=== PATIENT | female | born 1970 | race Caucasian/White ===

== ENCOUNTER 2016-09-14 09:42 | Emergency (ER) | payer BC, OTHER ==
--- NOTE | 2016-09-14 10:01 | Emergency Department Record ---
History of Present Illness - General Stated Complaint: NEEDLE STICK Time Seen by Provider: 09/14/16 09:56 Source: Patient Mode of Arrival: Ambulatory Limitations: No limitations - History of Present Illness Initial comments: 45 yo female presents to ED following a needle stick exposure to the left index finger following the administration of a depo-provera injection. Patient reports the injury occurred approximately 1 hours ago, patient immediately cleaned the wound following injury. Patient denies health problems at her baseline, reports that her Hepatitis B vaccination is not current. Onset/Timin -: Hour(s) Location: Left, Upper extremity Radiation: Non-Radiating Consistency: Constant Improves with: None Worsens with: None Associated Symptoms: Denies other symptoms - Ngozi Coma Scale Eye Response: (4) Open spontaneously Motor Response: (6) Obeys commands Verbal Response: (5) Oriented Ngozi Total: 15 - Related Data Home Medications Medication Instructions Recorded Confirmed Last Taken Levonorgestrel-Ethin Estradiol 1 tab PO DAILY 09/14/16 09/14/16 Unknown [Enpresse-28 Tablet] Allergies Allergy/AdvReac Type Severity Reaction Status Date / Time cefaclor [From [facility]] AdvReac ANAPHYLAXIS Verified 01/23/15 09:08 penicillin AdvReac ANAPHYLAXIS Verified 01/23/15 09:08 Review of Systems Constitutional: Denies: Chills, Fever, Malaise, Night sweats Eyes: Denies: Eye discharge, Eye pain ENT: Denies: Congestion, Ear pain, Epistaxis Respiratory: Denies: Cough, Dyspnea Cardiovascular: Denies: Chest pain, Dyspnea on exertion Endocrine: Denies: Fatigue, Heat or cold intolerance Gastrointestinal: Denies: Abdominal pain, Nausea, Vomiting Genitourinary: Denies: Dysuria, Frequency Musculoskeletal: Denies: Arthralgia, Back pain, Gout, Joint swelling Skin: Denies: Bruising, Change in color Neurological: Denies: Abnormal gait, Confusion, Headache, Seizure Psychiatric: Denies: Anxiety Hematological/Lymphatic: Denies: Anemia, Blood Clots Past Medical History - SOCIAL HISTORY Smoking Status: Former smoker - RESPIRATORY Hx Respiratory Disorders: No - CARDIOVASCULAR Hx Cardio Disorders: No - NEURO Hx Neuro Disorders: No - GI Hx GI Disorders: No - Hx Genitourinary Disorders: No - ENDOCRINE Hx Endocrine Disorders: No - MUSCULOSKELETAL Hx Musculoskeletal Disorders: No - PSYCH Hx Psych Problems: No - HEMATOLOGY/ONCOLOGY Hx Hematology/Oncology Disorders: No Physical Exam - General General Appearance: Alert, Oriented x3, Cooperative Limitations: No limitations - Head Head exam: Atraumatic, Normocephalic, Normal inspection Head exam detail: negative: Abrasion, Contusion, Quintanilla's sign, General tenderness, Hematoma, Laceration - Eye Eye exam: Normal appearance. negative: Conjunctival injection, Periorbital swelling, Periorbital tenderness, Scleral icterus - ENT Ear exam: negative: Auricular hematoma, Auricular trauma Nasal Exam: negative: Active bleeding, Discharge, Dried blood, Foreign body Mouth exam: negative: Drooling, Laceration, Muffled voice, Tongue elevation - Neck Neck exam: Normal inspection. negative: Meningismus, Tenderness - Respiratory Respiratory exam: Normal lung sounds bilaterally. negative: Rales, Respiratory distress, Rhonchi, Stridor - Cardiovascular Cardiovascular Exam: Regular rate, Normal rhythm, Normal heart sounds - GI/Abdominal GI/Abdominal exam: Soft. negative: Rebound, Rigid, Tenderness - Rectal Rectal exam: Deferred - exam: Deferred - Extremities Extremities exam: Other (small needle stick injury to the distal left index finger.). negative: Calf tenderness, Pedal edema, Tenderness - Back Back exam: Denies: CVA tenderness (R), CVA tenderness (L) - Neurological Neurological exam: Alert, Normal gait, Oriented X3 - Psychiatric Psychiatric exam: Normal affect, Normal mood - Skin Skin exam: Normal color. negative: Abrasion Type of lesion: negative: abrasion Course - Reevaluation(s) Reevaluation #1: 09/14/16 10:06 Patient was seen and examined, rapid HIV and Hepatitis screen ordered. Provided the patient with HIV prophylxis information including risks and benefits of initiating therapy, patient does not want to start prophylaxis as this time. Will attempt to reach the source patient for rapid testing as well. Will initiate Hepatitis vaccination from the ED, immuneglobulin is not currently indicated unless the source patient is positive. 09/14/16 10:11 Disposition Disposition: Discharge Clinical Impression: Needle stick injury of finger Disposition: Home, Self-Care Condition: (2) Stable Instructions: Needle Stick Injuries (ED) Additional Instructions: Return to ED if your symptoms worsen or if you have any concerns. Follow-up with employee health in 1-3 days as directed. Time of Disposition: 11:56
[2016-09-14] MEDS ORDERED: HEPATITIS B VIRUS VACCINE IM ONE (10:12)
[2016-09-15 13:09] LABS: HEP A AB IGM Nonreactive (Nonreactive); HEPATITIS B CORE ANTIBODY,IGM Nonreactive (Nonreactive); HEPATITIS B SURFACE ANTIGEN Nonreactive (Nonreactive); HEPATITIS C VIRUS ANTIBODY Nonreactive (Nonreactive)
== END 2016-09-14 11:45 | disposition home or self-care (01) ==
LOC: ER 09:42
DX: S60.411A Abrasion of left index finger, initial encounter (principal); W46.0XXA Contact with hypodermic needle, initial encounter; Y92.230 Patient room in hospital as the place of occurrence of the external cause; Y93.F9 Activity, other caregiving; Y99.0 Civilian activity done for income or pay
CPT/HCPCS: 87390; 96372; 99283

== ENCOUNTER 2016-10-17 08:52 | Emergency (ER) | payer BC, OTHER ==
--- NOTE | 2016-10-17 09:01 | Emergency Department Record ---
History of Present Illness - General Chief complaint: ENT Stated complaint: EAR PAIN Time Seen by Provider: 10/17/16 09:01 Source: Patient Mode of Arrival: Ambulatory Limitations: No limitations - History of Present Illness Initial comments: The patient is here due to swelling to her R jaw at the angle of the mandible for the last 3 hours. She denies any significant pain, fever, ST or RIDLEY. There is reported ear popping and mild congestion. MD complaint: Other Onset/Timin -: Days(s) Location: R ear Severity: Moderate Severity scale (1-10): 2 Quality: Aching Consistency: Constant Improves with: None - Related Data Home Medications Medication Instructions Recorded Confirmed Last Taken Levonorgestrel-Ethin Estradiol 1 tab PO DAILY 09/14/16 10/17/16 1 Day Ago [Enpresse-28 Tablet] Previous Rx's Medication Instructions Recorded Clindamycin HCl [Cleocin HCl] 300 mg PO QID #40 capsule 10/17/16 Allergies Allergy/AdvReac Type Severity Reaction Status Date / Time cefaclor [From Ceclor] AdvReac ANAPHYLAXIS Verified 10/17/16 09:01 penicillin AdvReac ANAPHYLAXIS Verified 10/17/16 09:01 Travel Screening - Travel/Exposure Within Last 30 Days Have you traveled within the last 30 days?: No - Travel/Exposure Within Last Year Have you traveled outside the [place] in the last year?: No - Additonal Travel Details Have you been exposed to anyone with a communicable illness?: No - Travel Symptoms Symptom Screening: None Review of Systems Constitutional: Denies: Chills, Fever Eyes: Denies: Eye discharge ENT: Reports: Congestion Respiratory: Denies: Cough, Dyspnea Past Medical History - SOCIAL HISTORY Smoking Status: Former smoker Alcohol Use: Occassional Drug Use: None - RESPIRATORY Hx Respiratory Disorders: No - CARDIOVASCULAR Hx Cardio Disorders: No - NEURO Hx Neuro Disorders: No - GI Hx GI Disorders: No - Hx Genitourinary Disorders: No - ENDOCRINE Hx Endocrine Disorders: No - MUSCULOSKELETAL Hx Musculoskeletal Disorders: No - PSYCH Hx Psych Problems: No - HEMATOLOGY/ONCOLOGY Hx Hematology/Oncology Disorders: No Family Medical History Any Significant Family History?: Yes Hx Resp Disorders: Mother Physical Exam - General General Appearance: Alert, Oriented x3, Cooperative, No acute distress - Head Head exam: Atraumatic, Normocephalic, Normal inspection - Eye Eye exam: Normal appearance, PERRL - ENT ENT exam: Normal orophraynx, Other (There is significant swelling and mild tenderness to the R parotid gland. There is no overlying erythema.). negative: Normal exam, TM's normal bilaterally (The R TM has chronic changes but does not appear to be acutely infected.) Throat exam: Normal inspection. negative: Tonsillar erythema, Tonsillar exudate - Neck Neck exam: Normal inspection, Full ROM, Lymphadenopathy (The R parotid gland is swollen and mildly tender.). negative: Tenderness - Respiratory Respiratory exam: Normal lung sounds bilaterally. negative: Respiratory distress - Cardiovascular Cardiovascular Exam: Regular rate, Normal rhythm, Normal heart sounds Course Vital Signs 10/17/16 08:54 Temperature 97.8 F Pulse Rate 101 H Respiratory 16 Rate Blood Pressure 129/76 Pulse Ox 100 - Reevaluation(s) Reevaluation #1: I did explain to the patient that it appears that she has parotid gland inflammation. We will treat her with Clindamycin and warm compresses and have her recheck tomorrow with her PCP. 10/17/16 09:13 Disposition Disposition: Discharge Clinical Impression: Pain of parotid gland Disposition: Home, Self-Care Condition: (1) Good Instructions: Sialoadenitis (ED) Additional Instructions: Please take the clindamycin and use warm compresses on the R parotid gland. Use lemon drops during the day. Please see your PCP tomorrow for recheck if not better and return to the ER if worse. Prescriptions: Clindamycin HCl [Cleocin HCl] 300 mg PO QID #40 capsule Forms: Patient Portal Access Time of Disposition: 09:16
[2016-10-17] MEDS ORDERED: CLINDAMYCIN 150 MG CAP PO ONE (09:07)
== END 2016-10-17 09:23 | disposition home or self-care (01) ==
LOC: ER 08:52
DX: K11.8 Other diseases of salivary glands (principal)
CPT/HCPCS: 99282

== ENCOUNTER 2016-10-25 13:12 | Observation (INO) | payer BC ==
[2016-10-25] MEDS ORDERED: DIPHENHYDRAMINE HCL IV 50 MG/ML VIAL IVP ONE (13:31)
[2016-10-25] MEDS ORDERED: 0.9 % SODIUM CHLORIDE 1,000 ML BAG IV ONE (13:31)
--- NOTE | 2016-10-25 13:46 | Emergency Department Record ---
History of Present Illness - General Chief Complaint: Passed out Time Seen by Provider: 10/25/16 13:25 Source: Patient Mode of Arrival: Stretcher Limitations: No limitations - History of Present Illness Initial Comments: The patient is here due to passing out at work a half hour ago. She was walking inside from being outside for a very short time and began to feel warm and lightheaded. She then sat down on an object due to the lightheadedness and then promptly passed out falling forward and hitting her head on cement. She denied any CP, SOB, or palpitations prior. When she woke up she saw people standing over her. There was no reported seizure activity. The patient now only complains of a RIDLEY at the site of hitting her head. She states she has a hx of passing out in the past and has had a cardiac echo for this which was reportedly neg per the patient. She denies any recent illness, fever, chills, nausea, vomiting or diarrhea. MD Complaint: Loss of consciousness Onset/Timin -: Minutes(s) Injuries Sustained Associated with Event: Head Current Symptoms: Vertigo Context: Other Treatments Prior to Arrival: None - Related Data Home Medications Medication Instructions Recorded Confirmed Last Taken Levonorgestrel-Ethin Estradiol 1 tab PO DAILY 09/14/16 10/25/16 1 Day Ago [Enpresse-28 Tablet] Previous Rx's Medication Instructions Recorded Clindamycin HCl [Cleocin HCl] 300 mg PO QID #40 capsule 10/17/16 Allergies Allergy/AdvReac Type Severity Reaction Status Date / Time cefaclor [From [facility]] AdvReac ANAPHYLAXIS Verified 10/17/16 09:01 penicillin AdvReac ANAPHYLAXIS Verified 10/17/16 09:01 Travel Screening - Travel/Exposure Within Last 30 Days Have you traveled within the last 30 days?: No Review of Systems Constitutional: Denies: Chills, Fever Eyes: Denies: Eye discharge ENT: Denies: Congestion Respiratory: Denies: Cough, Dyspnea Cardiovascular: Denies: Arrhythmia, Chest pain Endocrine: Denies: Fatigue Past Medical History - SOCIAL HISTORY Smoking Status: Former smoker - RESPIRATORY Hx Respiratory Disorders: No - CARDIOVASCULAR Hx Cardio Disorders: No - NEURO Hx Neuro Disorders: No - GI Hx GI Disorders: No - Hx Genitourinary Disorders: No - ENDOCRINE Hx Endocrine Disorders: No - MUSCULOSKELETAL Hx Musculoskeletal Disorders: No - PSYCH Hx Psych Problems: No - HEMATOLOGY/ONCOLOGY Hx Hematology/Oncology Disorders: No Family Medical History Any Significant Family History?: Yes Hx Resp Disorders: Mother Physical Exam - General General Appearance: Alert, Oriented x3, Cooperative, No acute distress - Head Head exam: negative: Atraumatic (There is a hematoma to the mid frontal skull area superiorly.), Normal inspection - Eye Eye exam: Normal appearance, PERRL, EOMI - ENT ENT exam: Normal exam, Mucous membranes moist, Normal external ear exam, Normal orophraynx, TM's normal bilaterally - Neck Neck exam: Normal inspection, Full ROM. negative: Tenderness (There is no Cspine tenderness and no pain with ROM of the head.) - Respiratory Respiratory exam: Normal lung sounds bilaterally. negative: Respiratory distress - Cardiovascular Cardiovascular Exam: Regular rate, Normal rhythm, Normal heart sounds - GI/Abdominal GI/Abdominal exam: Soft, Normal bowel sounds. negative: Tenderness - Extremities Extremities exam: Normal inspection, Full ROM, Normal capillary refill. negative: Tenderness - Neurological Neurological exam: Alert. negative: Motor sensory deficit Course Vital Signs 10/25/16 13:14 Temperature 97.6 F Pulse Rate 98 H Respiratory 20 Rate Blood Pressure 120/85 Pulse Ox 95 - Reevaluation(s) Reevaluation #1: The patient is doing very well at this time. She states her RIDLEY is very mild and she does not require any pain medicines. 10/25/16 14:13 Reevaluation #2: The patient is doing very well at this time and denies any CP, SOB or DAHLIA. I did discuss the issues with the patient and did recommend hospital admission overnight and she agrees to the plan. I did then discuss the case with Gisell ([employer] ) and she does agree to accepting the admission for Dr. Thomas. 10/25/16 14:50 Medical Decision Making - Lab Data Result diagrams: 10/25/16 13:40 10/25/16 13:40 Disposition Disposition: Admit Clinical Impression: Syncope and Collapse Disposition: Still a Patient at [facility] Decision to Admit: Admit from ER Decision to Admit Date: 10/25/16 Decision to Admit Time: 14:52 Accepting Physician: Martha Time Discussed w/Accepting Physician: 14:52 Condition: (2) Stable Forms: Patient Portal Access Time of Disposition: 14:52
[2016-10-25 13:55] LABS: BASO % 0.2 % (0-6); EOS % 0.8 % (0-6); GRAN % 64.9 % (47-80); HEMOGLOBIN 14.2 gm/dl (11.6-16.0); LYMPH % 28.6 % (16-45); MEAN CELL VOLUME 103.9 fl (81-97); MEAN CORPUSCULAR HEMOGLOBIN 34.3 pg (27-33); MEAN PLATELET VOLUME 9.3 fl (7.4-10.4); MONO % 5.5 % (0-9); PLATELET COUNT 235 K/uL (130-400); RED BLOOD COUNT 4.14 M/uL (3.80-5.40); RED CELL DISTRIBUTION WIDTH 12.6 % (11.5-14.5); WHITE BLOOD COUNT W/O DIFF 8.6 K/uL (4.2-12.2)
[2016-10-25 14:03] LABS: ALB/GLOB RATIO 1.4 (1.1-1.8); ALBUMIN 4.1 gm/dL (3.5-5.0); ALKALINE PHOSPHATASE 82 U/L (38-126); ALT/SGPT 30 U/L (9-52); ANION GAP 10.8 (7-16); AST/SGOT 18 U/L (14-36); BILIRUBIN,TOTAL 0.71 mg/dL (0.2-1.3); BLOOD UREA NITROGEN 13 mg/dL (7-17); CARBON DIOXIDE 23.2 mmol/L (22-30); CREATINE PHOSPHOKINASE 31 U/L (30-135); CREATININE 0.6 mg/dL (0.52-1.04); EST GLOMERULAR FILTRATION RATE > 60 ml/min; GLUCOSE,RANDOM 112 mg/dL (70-110); TOTAL PROTEIN 7.1 gm/dL (6.3-8.2)
[2016-10-25 14:15] LABS: CKMB 0.3 ug/L (0-6)
[2016-10-25 14:25] LABS: TROPONIN I < 0.012 ng/mL (0.00-0.034)
[2016-10-25] MEDS ORDERED: IBUPROFEN 600 MG TABLET PO PRN (15:29)
[2016-10-25] MEDS ORDERED: ACETAMINOPHEN 500 MG TABLET PO PRN (15:29)
[2016-10-25] MEDS ORDERED: 0.9 % SODIUM CHLORIDE 1000ML 1,000 ML IV PRN (15:29)
[2016-10-25] MEDS: CLINDAMYCIN 300 MG PO SCH ×2 (18:18→21:44)
--- NOTE | 2016-10-25 19:27 | History & Physical ---
History of Present Illness - Date of Service Date of Service for History & Physical: 10/25/16 - History of Present Illness Admitting Diagnosis: 1. Syncope, R/O LA or Arrythmia History of Present Illness: 45 y/o with CC syncopal episode admitted for syncope r/o arrythmia, cardiac etiology. Reports no significant medical history. Reports has had similar episode when she was a young child after being bit by a hamster. Family thought due to fear and pain to bite, was not worked up and remained asymptomatic with no further episodes until she had seizure-like activity at the age of 16 or 17 when she had the chicken pox. Reports she was worked up for a seizure disorder at that time with work up being negative. Over the last 10 years has had 2 other similar episodes. Episode #1 about 10 years ago, + syncope, had echo which was normal. Episode #2 occurred May 2016 which she felt a "whoosh" of warmth, flushing, weakness and felt like she was going to black out. Laid down on the floor, denies any LOC, and symptoms passed. Was not seen by PCP or ED at that time. Is currently taking Clindamycin for salivary stone and parotitis on the right diagnosed 2 weeks ago. Denies any recent illness, nausea, diarrhea, vomiting, extreme heat conditions. Today was coming in from break in which she lifted a heavy TV and had a cigarette, came into building, felt similar "whoosh" became hot, sweaty, dizzy, sat own on raised register and the next thing she knew she was laying on the ground with staff around her. Staff witness reports no seizure-like activity, LOC only "seconds" and came to. Denies chest pain, palpitations, numbness or tingling prior to syncopal episode. At the time of event blood sugar 123, BP 155 /77, neurochecks normal, became oriented x 3 almost immediately after regaining consciousness. While in ED CT head negative, CBC and CMP unremarkable, HCG negative. Ortho stats normal. Remained dizzy upon sitting, was given IV Benadryl with improvement. 10/25/16- resting in bed comfortable, able to sit up in bed and ambulate to BR without dizziness, has hematoma frontal aspect of skull, reports headache pain 2 /10. Denies vision changes, nausea. Abrasion noted left temporal area and left check. Otherwise in good spirits. PCP: Dr Traore Travel Screening - Travel/Exposure Within Last 30 Days Have you traveled within the last 30 days?: No - Travel/Exposure Within Last Year Have you traveled outside the [place] in the last year?: No - Additonal Travel Details Have you been exposed to anyone with a communicable illness?: No - Travel Symptoms Symptom Screening: None Review of Systems Constitutional: Denies: Chills, Fever Eyes: Denies: Eye discharge ENT: Denies: Congestion Respiratory: Denies: Cough, Dyspnea Cardiovascular: Denies: Arrhythmia, Chest pain Endocrine: Denies: Fatigue Past Medical History - SOCIAL HISTORY Smoking Status: Former smoker Alcohol Use: Occassional Drug Use: None - RESPIRATORY Hx Respiratory Disorders: No - CARDIOVASCULAR Hx Cardio Disorders: No - NEURO Hx Neuro Disorders: Yes - GI Hx GI Disorders: No - Hx Genitourinary Disorders: No - ENDOCRINE Hx Endocrine Disorders: No Hx Diabetes: No Hx Thyroid Disease: No - MUSCULOSKELETAL Hx Musculoskeletal Disorders: No - PSYCH Hx Psych Problems: No - HEMATOLOGY/ONCOLOGY Hx Hematology/Oncology Disorders: No Family Medical History Any Significant Family History?: Yes Hx Heart Disease: Father Hx Resp Disorders: Mother H&P Meds/Allergies - Allergies Allergies: Allergies Allergy/AdvReac Type Severity Reaction Status Date / Time cefaclor [From Ceclor] AdvReac ANAPHYLAXIS Verified 10/17/16 09:01 penicillin AdvReac ANAPHYLAXIS Verified 10/17/16 09:01 - Home Medications Home Medications Medication Instructions Recorded Confirmed Last Taken Levonorgestrel-Ethin Estradiol 1 tab PO DAILY 09/14/16 10/25/16 1 Day Ago [Enpresse-28 Tablet] Previous Rx's Medication Instructions Recorded Clindamycin HCl [Cleocin HCl] 300 mg PO QID #40 capsule 10/17/16 - Active Medications Active Medications: Current Medications Acetaminophen (Tylenol 500mg Tab) 1,000 mg PO Q6H PRN PRN Reason: PAIN/TEMP Sodium Chloride () 1,000 mls @ 100 mls/hr IV .Q10H PRN PRN Reason: LARGE VOLUME IV Last Admin: 10/25/16 17:00 Dose: 100 mls/hr Ibuprofen (Motrin 600mg) 600 mg PO Q8H PRN PRN Reason: Analgesia Patient Own Med: (Clindamycin 300 Mg) [facility] Last Admin: 10/25/16 18:18 Dose: 1 each Physical Exam - Vital Signs Vital Signs: Vital Signs - Last 24 Hrs Temp Pulse Resp BP Pulse Ox 10/25/16 17:06 79 16 10/25/16 15:29 98.1 F 79 16 112/71 98 - General General Appearance: Alert, Oriented x3, Cooperative, No acute distress Limitations: No limitations - Head Head exam: Atraumatic (There is a hematoma to the mid frontal skull area superiorly. Mild bogginess just above area of hematoma). negative: Normal inspection Head exam detail: Abrasion (left latter day, left cheek). negative: Quintanilla's sign - Eye Eye exam: Normal appearance, PERRL, EOMI Pupils: Normal accommodation - ENT ENT exam: Normal exam, Mucous membranes moist, Normal external ear exam, Normal orophraynx, TM's normal bilaterally - Neck Neck exam: Normal inspection, Full ROM. negative: Tenderness (There is no Cspine tenderness and no pain with ROM of the head.) - Respiratory Respiratory exam: Normal lung sounds bilaterally. negative: Respiratory distress - Cardiovascular Cardiovascular Exam: Regular rate, Normal rhythm, Normal heart sounds Peripheral Pulses: 3+: Dorsalis Pedis (R), Dorsalis Pedis (L) - GI/Abdominal GI/Abdominal exam: Soft, Normal bowel sounds. negative: Tenderness - Extremities Extremities exam: Normal inspection, Full ROM, Normal capillary refill. negative: Tenderness - Neurological Neurological exam: Alert, CN II-XII intact, Oriented X3. negative: Motor sensory deficit - Psychiatric Psychiatric exam: Normal affect, Normal mood - Skin Skin exam: Abrasion (left latter day, left cheek) Results - Labs Result Diagrams: 10/25/16 13:40 10/25/16 13:40 - Imaging and Cardiology CT scan - head Status: Report reviewed (no acute process, unremarkable) VTE H&P Assessment - Risk for VTE Risk for VTE: Yes Risk Level: Low Risk Assessment Date: 10/25/16 Risk Assessment Time: 19:51 VTE Orders Placed or Will Be Placed: Yes Plan - Detailed Diagnosis and Plan (1) Syncope and collapse Current Visit: Yes Status: Acute Base Code: R55 - SYNCOPE AND COLLAPSE Comment: 10/25/16- 45 y/o female admitted for syncope and collapse. ED work up negative for infection, head trauma. EKG normal, cardiac enzymes # 1 negativ for acute LA. Neurochecks normal. Etiology TIA vs cardiac/arrythmia. No witessed seizure activity or post-ictal symptoms. Is a former smoker but reports has recently began again due to stress. 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
[2016-10-25 22:26] LABS: CKMB 0.3 ug/L (0-6)
[2016-10-25 22:27] LABS: TROPONIN I < 0.012 ng/mL (0.00-0.034)
[2016-10-26 05:14] LABS: BASO % 0.1 % (0-6); EOS % 1.2 % (0-6); GRAN % 59.1 % (47-80); HEMATOCRIT 38.7 % (35.0-47.0); HEMOGLOBIN 13.1 gm/dl (11.6-16.0); LYMPH % 32.1 % (16-45); MEAN CORPUSCULAR HEMOGLOBIN 35.2 pg (27-33); MEAN CORPUSCULAR HGB CONC 33.9 g/dl (32-36); MEAN PLATELET VOLUME 9.2 fl (7.4-10.4); MONO % 7.5 % (0-9); PLATELET COUNT 212 K/uL (130-400); RED BLOOD COUNT 3.72 M/uL (3.80-5.40); RED CELL DISTRIBUTION WIDTH 12.8 % (11.5-14.5); WHITE BLOOD COUNT W/O DIFF 6.8 K/uL (4.2-12.2)
[2016-10-26 05:26] LABS: ANION GAP 7.9 (7-16); BLOOD UREA NITROGEN 10 mg/dL (7-17); CARBON DIOXIDE 24.1 mmol/L (22-30); CREATININE 0.6 mg/dL (0.52-1.04); EST GLOMERULAR FILTRATION RATE > 60 ml/min; GLUCOSE,RANDOM 88 mg/dL (70-110)
[2016-10-26 05:38] LABS: CKMB 0.3 ug/L (0-6); TROPONIN I < 0.012 ng/mL (0.00-0.034)
--- NOTE | 2016-10-26 07:12 | CT SCAN REPORT ---
EXAM: CT OF THE BRAIN WITHOUT CONTRAST HISTORY: SYNCOPE. TECHNIQUE: CT of the brain without contrast was obtained. Comparison: None. FINDINGS: The globes are intact. The paranasal sinuses are unremarkable. Trace of fluid in the right mastoid air cells. No displaced or depressed skull fracture. Small central scalp hematoma. No acute intracranial hemorrhage. CT is limited for the evaluation of acute infarct. No CT evidence for large or territorial acute infarct. No mass or midline shift. IMPRESSION: NEGATIVE FOR ACUTE INTRACRANIAL ABNORMALITY. SMALL FRONTAL SCALP HEMATOMA. TRACE OF FLUID RIGHT MASTOID AIR CELLS. JOB NUMBER: [id number] MTDD
--- NOTE | 2016-10-26 07:28 | US CAROTID DOPPLER REPORT ---
EXAM: DUPLEX DOPPLER ULTRASOUND EXAMINATION OF THE BILATERAL CAROTID ARTERIES HISTORY: SYNCOPE. TECHNIQUE: Douglas scale, color Doppler and duplex Doppler evaluation of the bilateral arteries was performed. FINDINGS: 3 Vessel Right Peak Systolic/ End Diastolic Velocities Left Peak Systolic/ End Diastolic Velocities Internal Carotid Artery 82.5 cm/s/31.9 cm/s 83.4 cm/s/39.8 cm/s Common Carotid Artery 88.8 cm/s/25.4 cm/s 104.3 cm/s/38.1 cm/s External Carotid Artery 94.2 cm/s/13.8 cm/s 86.6 cm/s/15.5 cm/s Vertebral Artery 42.7 cm/s/20.0 cm/s 40.7 cm/s/14.5 cm/s d d d Right Flow Left Flow Vertebral Artery Antegrade Antegrade The right ICA/CCA ratio is 0.9. The left ICA/CCA ratio is 0.8. No significant atherosclerotic soft or calcified plaques are identified within the visualized common carotid, internal carotid, or external carotid arteries. No significant dissection is noted. IMPRESSION: UNREMARKABLE CAROTID DUPLEX DOPPLER ULTRASOUND EXAMINATION OF THE BILATERAL CAROTID ARTERIES DISCUSSED ABOVE. JOB NUMBER: [id number] [facility]
[2016-10-26] MEDS: CLINDAMYCIN 300 MG PO SCH ×3 (08:19→17:44)
[2016-10-26] MEDS ORDERED: LEVONORGESTREL ETHIN ESTRADIOL PO SCH (10:00)
--- NOTE | 2016-10-26 10:15 | Physician Progress Note ---
Subjective - Date Date of Physician Progress Note: 10/26/16 - Subjective Subjective Comment: Patient states she is doing well today. She reports generalized headache and some tenderness under her left eye where she has an abrasion from falling yesterday. She reports some Objective - Vital Signs Vital Signs: Vital Signs - Last 24 Hrs Temp Pulse Resp BP Pulse Ox 10/26/16 08:43 97.7 F 72 16 95/64 97 10/26/16 05:06 98.6 F 75 14 96/63 98 10/26/16 02:00 98.4 F 73 16 98/64 97 10/25/16 22:19 98.7 F 76 16 106/66 96 10/25/16 17:29 98.6 F 88 16 104/59 98 10/25/16 17:06 79 16 10/25/16 15:29 98.1 F 79 16 112/71 98 - General General Appearance: Alert, Oriented x3, Cooperative, No acute distress Limitations: No limitations - Head Head exam: Atraumatic (There is a hematoma to the mid frontal skull area superiorly. Mild bogginess just above area of hematoma). negative: Normal inspection Head exam detail: Abrasion (left jehovah's witness, left cheek). negative: Quintanilla's sign - Eye Eye exam: Normal appearance, PERRL, EOMI Pupils: Normal accommodation - ENT ENT exam: Normal exam, Mucous membranes moist, Normal external ear exam, Normal orophraynx, TM's normal bilaterally - Neck Neck exam: Normal inspection, Full ROM. negative: Tenderness (There is no Cspine tenderness and no pain with ROM of the head.) - Respiratory Respiratory exam: Normal lung sounds bilaterally. negative: Respiratory distress - Cardiovascular Cardiovascular Exam: Regular rate, Normal rhythm, Normal heart sounds Peripheral Pulses: 3+: Dorsalis Pedis (R), Dorsalis Pedis (L) - GI/Abdominal GI/Abdominal exam: Soft, Normal bowel sounds. negative: Tenderness - Extremities Extremities exam: Normal inspection, Full ROM, Normal capillary refill. negative: Tenderness - Neurological Neurological exam: Alert, CN II-XII intact, Oriented X3. negative: Motor sensory deficit - Psychiatric Psychiatric exam: Normal affect, Normal mood - Skin Skin exam: Abrasion (left jehovah's witness, left cheek) Results - Labs Result Diagrams: 10/26/16 05:08 10/26/16 05:08 Labs Last 24 Hours: Laboratory Results - last 24 hr 10/25/16 10/25/16 10/26/16 21:56 22:07 05:08 WBC RBC Hgb Hct MCV MCH MCHC RDW Plt Count MPV Gran % Lymphocytes % Monocytes % Eosinophils % Basophils % D-Dimer 0.35 Sodium 141 Potassium 4.2 Chloride 109 H Carbon Dioxide 24.1 Anion Gap 7.9 BUN 10 Creatinine 0.6 Estimated GFR > 60 Random Glucose 88 Calcium 8.4 L CK-MB (CK-2) 0.3 0.3 Troponin I < 0.012 < 0.012 10/26/16 10/26/16 05:08 06:00 WBC 6.8 RBC 3.72 L Hgb 13.1 Hct 38.7 MCV 104.0 H MCH 35.2 H MCHC 33.9 RDW 12.8 Plt Count 212 MPV 9.2 Gran % 59.1 Lymphocytes % 32.1 Monocytes % 7.5 Eosinophils % 1.2 Basophils % 0.1 D-Dimer Sodium Cancelled Potassium Cancelled Chloride Cancelled Carbon Dioxide Cancelled Anion Gap Cancelled BUN Cancelled Creatinine Cancelled Estimated GFR Cancelled Random Glucose Cancelled Calcium Cancelled CK-MB (CK-2) Troponin I DVT/PE Assessment - Risk for VTE Risk for VTE: No Risk Level: Low Risk Assessment Date: 10/25/16 Risk Assessment Time: 19:51 VTE Orders Placed or Will Be Placed: Yes - Active Medicaitons Current Medications: Current Medications Acetaminophen (Tylenol 500mg Tab) 1,000 mg PO Q6H PRN PRN Reason: PAIN/TEMP Sodium Chloride () 1,000 mls @ 100 mls/hr IV .Q10H PRN PRN Reason: LARGE VOLUME IV Last Admin: 10/25/16 17:00 Dose: 100 mls/hr Ibuprofen (Motrin 600mg) 600 mg PO Q8H PRN PRN Reason: Analgesia Patient Own Med: (Clindamycin 300 Mg) 1 each PO [facility]IDWM[facility] Last Admin: 10/26/16 08:19 Dose: 1 each AMI Plan - Labs Result Diagrams: 10/26/16 05:08 10/26/16 05:08
--- NOTE | 2016-10-26 14:00 | Discharge Summary ---
Providers Discharge Summary Date: 10/26/16 Date of admission: 10/25/16 15:28 Expected Date of Discharge: 10/26/16 Attending physician: JENIFFER MCGILL Primary care physician: FERNANDO HERNANDEZ D.O. Physical Exam - Vital Signs Vital Signs: Vital Signs - Last 24 Hrs Temp Pulse Resp BP Pulse Ox 10/26/16 09:00 72 16 10/26/16 08:43 97.7 F 72 16 95/64 97 10/26/16 05:06 98.6 F 75 14 96/63 98 10/26/16 02:00 98.4 F 73 16 98/64 97 10/25/16 22:19 98.7 F 76 16 106/66 96 10/25/16 17:29 98.6 F 88 16 104/59 98 10/25/16 17:06 79 16 10/25/16 15:29 98.1 F 79 16 112/71 98 - General General Appearance: Alert, Oriented x3, Cooperative, No acute distress Limitations: No limitations - Head Head exam: Atraumatic (There is a hematoma to the mid frontal skull area superiorly.). negative: Normal inspection Head exam detail: Abrasion (left quaker, left cheek). negative: Quintanilla's sign - Eye Eye exam: Normal appearance, PERRL, EOMI Pupils: Normal accommodation - ENT ENT exam: Normal exam, Mucous membranes moist, Normal external ear exam, Normal orophraynx, TM's normal bilaterally - Neck Neck exam: Normal inspection, Full ROM. negative: Tenderness (There is no Cspine tenderness and no pain with ROM of the head.) - Respiratory Respiratory exam: Normal lung sounds bilaterally. negative: Respiratory distress - Cardiovascular Cardiovascular Exam: Regular rate, Normal rhythm, Normal heart sounds Peripheral Pulses: 3+: Dorsalis Pedis (R), Dorsalis Pedis (L) - GI/Abdominal GI/Abdominal exam: Soft, Normal bowel sounds. negative: Tenderness - Extremities Extremities exam: Normal inspection, Full ROM, Normal capillary refill. negative: Tenderness - Neurological Neurological exam: Alert, CN II-XII intact, Oriented X3. negative: Motor sensory deficit - Psychiatric Psychiatric exam: Normal affect, Normal mood - Skin Skin exam: Abrasion (left quaker, left cheek) Hospitalization - Hospitalization Admission Diagnosis: 1. Syncope, R/O [place] or Arrythmia - Problem List/Discharge Diagnosis (1) Syncope and collapse Status: Acute Base Code: R55 - SYNCOPE AND COLLAPSE Comment: 10/26/16- Patient continues to do well without any furthey syncope. ED work up negative for infection, head trauma. EKG normal, cardiac enzymes negative x3. Neurochecks normal. No witessed seizure activity or post-ictal symptoms. D-Dimer wnl range. carotid doppler and echo without abnormalities. Dr. Shea evaluated patient and did not feel syncopal episode was related to cardiac cause but rather vasovagal in nature. -will plan to discharge home with pcp follow up in 1 week -continue to use ibuprofen 600mg po tid prn for generalized, mild headache -Patient was instructed to follow up with Dr. Shea as an outpatient if she continues to have pre-syncopal and syncopal episodes. -return to ED for any severe headache, vision changes, or other new/worsening symptoms. (2) DVT prophylaxis Status: Acute Base Code: [id number] - Comment: 10/26/16- nursing to encourag frequnt ambulation (3) Full code status Status: Acute Base Code: Z78.9 - OTHER SPECIFIED HEALTH STATUS Comment: 10/26/16- will remain full code during this hospitalization. - Hospitalization Course Disposition: Home, Self-Care Hospital Course: 45 y/o with CC syncopal episode admitted for syncope r/o arrythmia, cardiac etiology. Reports no significant medical history. Reports has had similar episode when she was a young child after being bit by a hamster. Family thought due to fear and pain to bite, was not worked up and remained asymptomatic with no further episodes until she had seizure-like activity at the age of 16 or 17 when she had the chicken pox. Reports she was worked up for a seizure disorder at that time with work up being negative. Over the last 10 years has had 2 other similar episodes. Episode #1 about 10 years ago, + syncope, had echo which was normal. Episode #2 occurred May 2016 which she felt a "whoosh" of warmth, flushing, weakness and felt like she was going to black out. Laid down on the floor, denies any LOC, and symptoms passed. Was not seen by PCP or ED at that time. Is currently taking Clindamycin for salivary stone and parotitis on the right diagnosed 2 weeks ago. Denies any recent illness, nausea, diarrhea, vomiting, extreme heat conditions. Today was coming in from break in which she lifted a heavy TV and had a cigarette, came into building, felt similar "whoosh" became hot, sweaty, dizzy, sat own on raised register and the next thing she knew she was laying on the ground with staff around her. Staff witness reports no seizure-like activity, LOC only "seconds" and came to. Denies chest pain, palpitations, numbness or tingling prior to syncopal episode. At the time of event blood sugar 123, BP 155 /77, neurochecks normal, became oriented x 3 almost immediately after regaining consciousness. While in ED CT head negative, CBC and CMP unremarkable, HCG negative. Ortho stats normal. Remained dizzy upon sitting, was given IV Benadryl with improvement. 10/25/16- resting in bed comfortable, able to sit up in bed and ambulate to BR without dizziness, has hematoma frontal aspect of skull, reports headache pain 2 /10. Denies vision changes, nausea. Abrasion noted left temporal area and left check. Otherwise in good spirits. 10/26/16- Patient reports a mild, generalized headache. No vision changes, weakness, confusion. She denies any chest pain, arrhythmia, or shortness of breath. She reports having at least 6 syncopal episodes throughout her life. PCP: Dr Hernandez Procedures: Cardiology Procedures 10/26/16 12:40 Echo W/CF & Cardiac Doppler NOW Abnormal Labs: Abnormal Lab Results 10/26/16 10/26/16 Range/Units 05:08 05:08 RBC 3.72 L (3.80-5.40) M/uL MCV 104.0 H (81-97) fl MCH 35.2 H (27-33) pg Chloride 109 H (98-107) mmol/L Calcium 8.4 L (8.5-10.1) mg/dL Condition at Discharge: (2) Stable Discharge Medications - Discharge Medications Home Medications: Ambulatory Orders Levonorgestrel-Ethin Estradiol [Enpresse-28 Tablet] 1 tab PO DAILY 09/14/16 [ Last Taken 1 Day Ago] Clindamycin HCl [Cleocin HCl] 300 mg PO QID #40 capsule 10/17/16 [Last Taken Unknown] Discharge Plan - Discharge Instructions Activity at Discharge: Resume Usual Activities As Tolerated Diet at Discharge: Regular Diet Instructions: Syncope (DC) Additional Instructions: 2 Activity: Resume Usual Activities As Tolerated 2 Diet: TOLERATED 2 Consults: [] 2 Follow Up: []WITH FAMILY DOCTOR NEEDED 2 Dressing/Wound Care: (Type) (Change) 2 Additional: [] MAY FOLLOW UP WITH DR Judith SHEA IF NEEDED CONTINUE HOME MEDS
--- NOTE | 2016-10-27 12:54 | Medical Records Consult ---
DATE OF CONSULTATION: 10/26/2016 PRIMARY CARE PHYSICIAN: Gurjit Traore D.O. REFERRING PHYSICIAN: Dhiraj Bates M.D. REASON FOR CONSULTATION: Syncope. HISTORY OF PRESENT ILLNESS: The patient is a medical translator at the [employer] and was admitted yesterday after she had a syncopal episode at work. The patient has had a total of 4 syncopal events throughout her lifetime and she had 1 a couple of years ago as well. She usually had to keep herself well- hydrated and she was in her usual health except for having some emotional stress as her son is getting soon and there are no other health issues. She went out to help one of her coworkers to get something from the car and then when she returned back to work she felt slightly lightheaded and then passed out. She says the next thing she recalls was she was in the hospital bed. She denies any palpitations, denies any chest pain. She is obese and is not physically very active, does not have any structured exercise program but she has tried home exercises in the past where she was able to do without any issues. She denies any pedal edema, orthopnea or paroxysmal nocturnal dyspnea. PAST MEDICAL HISTORY: Significant for syncope as explained above. She has no history of diabetes, hypertension or hyperlipidemia. ALLERGIES: The patient is allergic to CEFACLOR and PENICILLIN and according to her she has anaphylaxis reactions from them. HOME MEDICATIONS: 1. Oral contraceptive pills. 2. Clindamycin which she was taking for 10 days. FAMILY HISTORY: No significant family history of coronary artery disease or sudden cardiac . SOCIAL HISTORY: The patient is , has 3 kids. She has a 20-pack year history of smoking which she quit about a year ago. She drinks only socially and last drink was about a week ago. Denies any illicit drug use. REVIEW OF SYSTEMS: No change in appetite, weight or sleep. Denies any bleeding disorders. Denies any endocrinologic disorder. Denies any chest pain. Had a syncopal episode as explained above. PHYSICAL EXAMINATION: VITAL SIGNS: Systolic blood pressure 102/67 mmHg. Heart rate 72 per minute. GENERAL: The patient is sitting comfortably in bed, not in any apparent distress. Is alert and oriented x 3. HEENT: She is normocephalic, atraumatic. Pupils are equal and reactive to light. Extraocular muscles are intact. NECK: Supple. No thyromegaly. CVS: Normal S1 and S2. There is no JVD, no pedal edema. RESPIRATORY: Lungs are clear to auscultation bilaterally. ABDOMEN: Soft and nontender. NEUROLOGIC: Nonfocal. LABORATORY DATA: White count 6.1, hemoglobin 14.2, platelet count of 232. BUN 20, creatinine 1.1, blood glucose 102, sodium 140, potassium 3.9. AST 29, ALT 32, alkaline phosphatase 60. Troponin has been less than 0.012 x 3. CPK is normal at 91. Calcium is 8.9. Her EKG shows sinus rhythm with no acute changes. The patient underwent an echocardiogram which shows normal left ventricular systolic function and no significant valvular pathology. IMPRESSION: Syncope. The patient's syncope was a vasovagal syncope and was a benign fainting spell. On the tele monitor she had some PACs and short runs of atrial tachycardia however that should not cause her to have a syncopal episode. I have asked the patient to keep herself well-hydrated; however, in the future if she has more of these episodes then we can consider compression stockings or either doing a tilt table test, however at this point in time I do not feel the need for any further testing therefore I gave reassurance to her and did counseling that if she feels lightheaded and dizzy she should sit down or lay down rather than fighting it as it will end up in a syncope if she does not change her posture to a more dependent posture. She will continue to follow up with Dr. Traore on a regular basis and can see me as outpatient only on an as needed basis. Luigi Norman MD CC: Dhiraj Bates M.D. [facility]
== END 2016-10-26 18:45 | disposition home or self-care (01) ==
LOC: ER 13:12 → MEDSURG 15:28
PROVIDERS: ADMIT Family Medicine; ATTEND Family Medicine
DX: R55 Syncope and collapse (principal); Z78.9 Other specified health status; F17.200 Nicotine dependence, unspecified, uncomplicated
CPT/HCPCS: 99285 ×2; 96374; 96361; 82550; 85025 ×2; 82553 ×2; 84484 ×2; 80048; 80053; 84703; 85379; 93880; 70450; 93005 ×2; 93010; G0378 ×2; 99217; 99219; J1200; J7030

== ENCOUNTER 2019-05-07 06:54 | Day surgery (SDC) | payer BC ==
[~2019-05-07 06:54] MED LIST: ACETAMINOPHEN 1,000 MG/100 ML BTL IVPB ONE; FAMOTIDINE 20MG TABLET PO ONE; MECLIZINE 25 MG TABLET PO ONE; METOCLOPRAMIDE 10 MG TABLET PO ONE
[2019-05-07] MEDS ORDERED: ROCURONIUM BROMIDE 50MG/5ML VIAL IV ONE (06:55)
[2019-05-07] MEDS ORDERED: MIDAZOLAM HCL 2MG/2ML VIAL IV ONE (06:55)
[2019-05-07] MEDS ORDERED: ONDANSETRON HCL IV 4 MG/2 ML VIAL IVP ONE ×2 (06:55→10:02)
[2019-05-07] MEDS ORDERED: DEXAMETHASONE 4 MG/ML 1ML VIAL IVP ONE (06:55)
[2019-05-07] MEDS ORDERED: SEVOFLURANE 250 ML INH ONE (06:55)
[2019-05-07] MEDS ORDERED: PROPOFOL 10 MG/ML VIAL IV ONE (06:55)
[2019-05-07] MEDS ORDERED: KETOROLAC 30 MG/ML VIAL IVP ONE (06:55)
[2019-05-07] MEDS ORDERED: SUCCINYLCHOLINE 20 MG/ML 10ML IVP ONE (06:55)
[2019-05-07] MEDS ORDERED: SUGAMMADEX SODIUM 200 MG/2 ML VIAL IV ONE (06:55)
[2019-05-07] MEDS ORDERED: FENTANYL CITRATE/PF (PACU) 50 MCG/ML VIAL IV ONE (06:55)
[2019-05-07] MEDS ORDERED: RINGERS SOLUTION,LACTATED 1,000 ML IV ONE ×2 (07:30→09:43)
[2019-05-07] MEDS ORDERED: BUPIVACAINE 0.25% W/EPI MPF 30ML VIAL SQ ONE (09:31)
[2019-05-07] MEDS ORDERED: SCOPOLAMINE 1 PATCH TDSY TD ONE (10:03)
[2019-05-07] MEDS ORDERED: FENTANYL PF 100MCG/2ML VIAL IVP ONE ×2 (10:14)
[2019-05-07] MEDS ORDERED: HYDROCODONE/APAP 5/325MG TABLET PO ONE (10:39)
--- NOTE | 2019-05-08 12:10 | Operative Note ---
DATE OF SURGERY: 05/07/2019 SURGEON: Rodriguez Will DO PREOPERATIVE DIAGNOSIS: Chronic cholecystitis. POSTOPERATIVE DIAGNOSIS: Acute on chronic cholecystitis. OPERATION: Laparoscopic cholecystectomy. INDICATION: The patient is a 48-year-old female who presented to the clinic with ongoing right subcostal postprandial pain. This has been a chronic issue for her. Imaging studies did reveal cholelithiasis with a thickened gallbladder wall. We did discuss cholecystectomy versus medical management. She desired surgical intervention. Risks include but are not limited to bleeding, infection, ductal injury, possible conversion to open, postoperative bile leak. She understood this fully. PROCEDURE: Thereafter, consent was signed and questions answered. She was taken to the operating room and placed in a supine position. General anesthesia was administered per the department of anesthesia. The patient's abdomen was prepped and draped in the usual sterile fashion. I did have to go in a supraumbilical position secondary to patient's body habitus. This area was anesthetized with a total of 5 mL of 0.25% Sensorcaine with epinephrine. A 2 cm supraumbilical incision was made. This was carried down bluntly to the anterior rectus fascia. This was incised. Shawn clamps were placed on the fascial edges and brought up into the wound. Stay sutures of 0 Vicryl were placed. Posterior rectus sheath was identified and incised. The peritoneal cavity was entered bluntly. At this time, a 10 mm blunt Hayden port was placed. Adequate pneumoperitoneum was established. Under direct visualization, additional 5 mm epigastric and two 5 mm right subcostal ports were placed. The patient was rotated into steep reverse Trendelenburg with rotation to left. I could only see the fundus of the gallbladder. This was covered with dense omental adhesions. This was lifted anteriorly. The gallbladder was noted to be very thickened and inflamed. I did have to use traumatic graspers. The patient also had severe fatty infiltration of the liver noted. The gallbladder was retracted over the right shoulder. This did rupture the gallbladder spilling purulent fluid. This was then suctioned free. Further cephalad and lateral traction was applied. The hepatocystic triangle was then thoroughly dissected out. There was no aberrant anatomy, no posterior ductal structures. The patient did have a fairly sizable cystic artery. Did release the distal half of the gallbladder from the liver plate elongating our retroductal window. There was no aberrant anatomy, no posterior ductal structures. The cystic duct and cystic artery were the only structures available. Each one was doubly clipped and cut in a standard fashion. Gallbladder essentially peeled off the liver bed secondary to the weight of the liver. This was placed in EndoCatch bag and brought out through the umbilical port. Right upper quadrant was then irrigated with approximately 2 liters of normal saline. There was bile leaking. A few points in the liver were controlled with cautery as well as FloSeal. At this time, the patient was leveled out. Pneumoperitoneum was released. All ports were removed. The fascia was closed with 0 Vicryl in a [id number] fashion. The skin at all ports was closed with 4-0 Vicryl. The patient was taken to the recovery room in stable condition. FINDINGS AT THE TIME OF SURGERY: Acute on chronic cholecystitis. Severe fatty infiltration of the liver. MTDD
== END 2019-05-07 11:25 | disposition home or self-care (01) ==
LOC: SUR 06:54
PROVIDERS: ATTEND Surgery
DX: K81.2 Acute cholecystitis with chronic cholecystitis (principal); E66.9 Obesity, unspecified; K76.0 Fatty (change of) liver, not elsewhere classified
CPT/HCPCS: 81025; J0330; J1885; J2405; J3490; J7120